=== PATIENT | female | born 1950 | race Hispanic/Latino ===

== ENCOUNTER 2019-08-03 07:03 | Observation (INO) | payer MEDICARE ==
[2019-08-03] MEDS ORDERED: ALBUTEROL 2.5 MG/3 ML NEBU IH ONE (07:09)
[2019-08-03] MEDS ORDERED: MAGNESIUM SULFATE 2 GM/50 ML BAG IV ONE (07:09)
[2019-08-03] MEDS ORDERED: IPRATROPIUM 0.02% NEBU 2.5 ML IH ONE (07:09)
[2019-08-03] MEDS ORDERED: ONDANSETRON 4 MG/2 ML INJ IV ONE (07:23)
[2019-08-03] MEDS ORDERED: ONDANSETRON 4 MG/2 ML INJ ONE (07:23)
--- NOTE | 2019-08-03 07:32 | Emergency Department Report ---
ED Shortness of Breath HPI - General Stated Complaint: DERRICK Time Seen by Provider: 08/03/19 07:09 Source: patient, EMS Mode of arrival: Ambulatory Limitations: Other (Severe work of breathing) - History of Present Illness Initial Comments: Chief complaint: " I cannot breathe." HPI: This is a 68-year-old female with history of COPD and tobacco use who presents with severe shortness of breath this morning. EMS arrived. Oxygen saturation 78% on room air according to EMS arrival. She received IV Solu- Medrol and CPAP. Patient denies fever denies chest pain. Mild nonproductive cough Complaint: shortness of breath -: Gradual, This morning Severity: severe Consistency: constant Improves With: nothing Worsens With: nothing Known History Of: COPD Associated Symptoms: cough ED Review of Systems ROS: Stated complaint: DERRICK Other details as noted in HPI Comment: All other systems reviewed and negative Constitutional: denies: fever, malaise Respiratory: cough, shortness of breath Cardiovascular: denies: chest pain Gastrointestinal: nausea. denies: abdominal pain ED Past Medical Hx - Past Medical History Previous Medical History?: Yes Additional medical history: COPD - Social History Smoking Status: Current Every Day Smoker ED Physical Exam - General General appearance: alert, in distress, other (Speaking 1-2 word sentences anxious severe work of breathing tripod position) - Head Head exam: Present: atraumatic, normocephalic - Eye Eye exam: Present: normal appearance - ENT ENT exam: Present: mucous membranes moist - Neck Neck exam: Present: normal inspection, full ROM - Respiratory Respiratory exam: Present: respiratory distress, accessory muscle use, decreased breath sounds, prolonged expiratory. Absent: rales, rhonchi - Cardiovascular Cardiovascular Exam: Present: regular rate, normal rhythm, normal heart sounds. Absent: systolic murmur, diastolic murmur, rubs, gallop - GI/Abdominal GI/Abdominal exam: Present: soft, normal bowel sounds. Absent: distended, tenderness, guarding, rebound - Extremities Exam Extremities exam: Present: normal inspection - Back Exam Back exam: Present: normal inspection - Neurological Exam Neurological exam: Present: alert, oriented X3 - Psychiatric Psychiatric exam: Present: normal affect, anxious - Skin Skin exam: Present: warm, dry, intact, pallor. Absent: rash ED Course Vital Signs 08/03/19 08/03/19 08/03/19 07:10 07:15 07:30 Temperature 97.5 F L Pulse Rate 103 H 95 H Pulse Rate [ Bilateral] Respiratory 35 H 29 H Rate Respiratory Rate [Bilateral ] Blood Pressure 138/78 138/78 O2 Sat by Pulse 93 96 97 Oximetry 08/03/19 08/03/19 08/03/19 07:46 08:00 08:16 Temperature Pulse Rate 89 87 92 H Pulse Rate [ Bilateral] Respiratory 19 18 18 Rate Respiratory Rate [Bilateral ] Blood Pressure 122/69 119/63 118/53 O2 Sat by Pulse 98 91 97 Oximetry 08/03/19 08/03/19 08/03/19 08:23 08:30 08:45 Temperature Pulse Rate 95 H 85 Pulse Rate [ 91 H Bilateral] Respiratory 16 15 Rate Respiratory 17 Rate [Bilateral ] Blood Pressure 118/53 107/55 O2 Sat by Pulse 98 98 Oximetry 08/03/19 08:46 Temperature Pulse Rate 86 Pulse Rate [ Bilateral] Respiratory 17 Rate Respiratory Rate [Bilateral ] Blood Pressure 107/55 O2 Sat by Pulse 98 Oximetry ED Medical Decision Making - Lab Data Result diagrams: 08/03/19 07:35 08/03/19 07:35 - EKG Data 08/03/19 07:31 EKG obtained 0729 Normal sinus rhythm rate 90 bpm abnormal axis prolonged NJ interval normal QTC no ST elevation nonischemic T wave pattern - Radiology Data Radiology results: report reviewed AP portable chest radiograph: No acute findings according to radiology report - Medical Decision Making Acute respiratory failure hypoxia hypercapnia requiring noninvasive positive pressure ventilation. Acute COPD exacerbation. Treated with IV magnesium, IV Solu-Medrol in route. Patient required CPAP in route. Treated with antibiotics and bronchodilator therapy. ABG with reflects respiratory acidosis. Admitted to the hospital service in improved condition Critical Care Time: Yes Critical care time in (mins) excluding proc time.: 40 Critical care attestation.: If time is entered above; I have spent that time in minutes in the direct care of this critically ill patient, excluding procedure time. 40 minutes of critical care time excluding procedures were used in the care of the patient. I reviewed electronic record. I discussed treatment plan with the nursing team members at the bedside. I came immediately to the bedside upon patient arrival. I obtained history from EMS. I have asked for stat respiratory therapy including noninvasive positive pressure ventilation bronchodilator treatment. patient required multiple interventions and reassessments. ED Disposition Clinical Impression: Acute respiratory failure with hypoxia and hypercapnia, COPD with acute exacerbation Disposition: DC-09 OP ADMIT IP TO THIS HOSP Is pt being admited?: Yes Does the pt Need Aspirin: No Condition: Stable
--- NOTE | 2019-08-03 07:39 | XRay Report ---
CHEST 1 VIEW INDICATION: Dyspnea. COMPARISON: None FINDINGS: Support devices: None. Heart: Within normal limits. Lungs/Pleura: No acute air space or interstitial disease. Additional findings: None. IMPRESSION: 1. No acute findings. Signer Name: Manjinder Raphael MD Signed: 08/03/2019 7:34 AM Workstation Name: [id number]
[2019-08-03 07:50] LABS: Basophils # (Auto) 0.1 K/mm3 (0.0-0.1); Basophils % (Auto) 0.7 % (0.0-1.8); Eosinophils # (Auto) 0.3 K/mm3 (0.0-0.4); Eosinophils % (Auto) 3.2 % (0.0-4.3); Hematocrit 45.1 % (30.3-42.9); Hemoglobin 15.4 gm/dl (10.1-14.3); Lymphocytes # (Auto) 3.5 K/mm3 (1.2-5.4); Lymphocytes % (Auto) 41.4 % (13.4-35.0); Mean Corpuscular HGB Conc 34 % (30-34); Mean Corpuscular Volume 92 fl (79-97); Monocytes # (Auto) 0.4 K/mm3 (0.0-0.8); Monocytes % (Auto) 4.7 % (0.0-7.3); Platelet Count 181 K/mm3 (140-440); Red Cell Distribution Width 14.2 % (13.2-15.2)
[2019-08-03 08:13] LABS: Alanine Aminotransferase 19 units/L (7-56); Albumin 4.5 g/dL (3.9-5); BUN/Creatinine Ratio 23; Blood Urea Nitrogen 16 mg/dL (7-17); Calcium 9.4 mg/dL (8.4-10.2); Hemolysis Index 6
[2019-08-03 08:42] LABS: ABG Base Excess -2.3 mmol/L (-2.0-3.0); ABG HCO3 24.6 mmol/L (20.0-26.0); ABG Methemoglobin 0.6 % (0.0-1.5); ABG Oxygen Saturation 99.4 % (95.0-99.0); ABG PCO2 50.1 mm Hg; ABG PH 7.309 pH Units (7.350-7.450); ABG PO2 249.1 mm Hg (80.0-90.0)
--- NOTE | 2019-08-03 10:27 | History and Physical Report ---
History of Present Illness Date of examination: 08/03/19 Date of admission: 08/03/19 09:07 Chief complaint: SOB History of present illness: This is a 68-year-old female with history of COPD and tobacco use who presents with sudden onset of severe shortness of breath this morning. EMS was called and her Oxygen saturation noted 78% on room air. She received IV Solu-Medrol and CPAP and brought to the ER for further evaluation and management . Patient denies fever denies chest pain. Does endorse mild nonproductive cough. Denied any exposure to COVID-19 patients, any recent travel to [place] or [place]. Chest x-ray showed no infiltrates, vitals shows normal temperature. Patient is being admitted for COPD exacerbation. Review of System: Constitutional: no fever, no chills, no weight loss Ears, eyes, nose, mouth and throat: no nasal congestion, no nasal discharge, no sinus pressure, no vision change, no red eye. Neck: No neck pain or rigidity. Cardiovascular: No chest pain, no orthopnea, no palpitations, no leg swelling Respiratory: + shortness of breath, + cough, no congestion, no wheezing Gastrointestinal: no abdominal pain, no nausea, no vomiting Genitourinary : no dysuria, no hematuria Musculoskeletal: no joint swelling or muscle ache Integumentary: no rash, no pruritis Neurological: no parathesias, no numbness, no tingling Endocrine: no cold or heat intolerance, no polyuria or polydipsia Hematologic/Lymphatic: no easy bruising, no easy bleeding, no gland swelling Allergic/Immunologic: no urticaria, no angioedema. Past History Past Medical History: COPD, other (sesional allergy) Past Surgical History: No surgical history Social history: denies: smoking, alcohol abuse Family history: no significant family history Medications and Allergies Allergies Allergy/AdvReac Type Severity Reaction Status Date / Time No Known Allergies Allergy Verified 08/03/19 09:22 Home Medications Medication Instructions Recorded Confirmed Last Taken Type Albuterol INH(or & Nicu Only) 8.5 g IH 4XD PRN #1 vial 08/04/19 Unknown Rx [ProAir HFA Inhaler] Azithromycin [Zithromax TAB] 500 mg PO QDAY #3 tablet 08/04/19 Unknown Rx Ipratropium/Albuterol Sulfate 1 ampul IH Q6HRT #30 ampul.neb 08/04/19 Unknown Rx [DUONEB *Not for PRN Use*] Prednisone [predniSONE 10 mg 10 mg PO .TAPER #1 tab.ds.pk 08/04/19 Unknown Rx (6-Day Pack, 21 Tabs)] Umeclidinium Brm/Vilanterol Tr 1 each IH DAILY #1 vial 08/04/19 Unknown Rx [Anoro Ellipta 62.5-25 Mcg INH] Exam - Physical Exam Narrative exam: GENERAL: well-developed and well-nourished elderly white female lying on bed appeared to be in no discomfort. HEENT: Normocephalic. Atraumatic. No conjunctival congestion or icterus. Patient has moist mucous membranes. NECK: Supple. Trachea midline. CHEST/LUNGS: Positive few wheezes auscultated bilaterally, breathing nonlabored. No crackles or rhonchi. HEART/CARDIOVASCULAR: Regular in rate and rhythm. S1 and S2 positive. ABDOMEN: Abdomen is soft, nontender. Patient has normal bowel sounds. SKIN: There is no rash. Warm and dry. NEURO: No focal motor deficit. Follows command. MUSCULOSKELETAL: No joint effusion or tenderness. EXTRIMITY: No edema, no cyanosis or clubbing. PSYCH: Cooperative. - Constitutional Vitals: Temp Pulse Resp BP Pulse Ox 97.8 F 93 H 18 108/55 94 08/03/19 10:00 08/03/19 10:00 08/03/19 10:00 08/03/19 10:00 08/03/19 10:00 Results - Labs CBC & Chem 7: 08/03/19 07:35 08/03/19 07:35 Labs: Abnormal lab results 08/03/19 08/03/19 08/03/19 Range/Units 07:35 07:35 08:35 Hgb 15.4 H (10.1-14.3) gm/dl Hct 45.1 H (30.3-42.9) % Lymph % (Auto) 41.4 H (13.4-35.0) % ABG pH 7.309 L (7.350-7.450) pH Units ABG pO2 249.1 H (80.0-90.0) mm Hg ABG O2 Saturation 99.4 H (95.0-99.0) % ABG Base Excess -2.3 L (-2.0-3.0) mmol/L Glucose 148 H (65-100) mg/dL - Imaging and Cardiology Chest x-ray: report reviewed (No infiltrates) Assessment and Plan Acute hypoxic respiratory failure Acute COPD exacerbation -- We'll admit the patient to telemetry - Will provide scheduled nebulizer breathing treatment and as needed - Place on empiric steroid and antibiotic - will get sputum culture, chest x-ray was unremarkable - Provide supplemental oxygen to keep oxygen saturation above 92% - Consider to consult pulmonary if no improvement in next 24 hours - We'll place on sliding scale of insulin as patient will be on empiric steroid - We will resume home medications, monitor BP History of seasonal allergy, will start on Claritin - Provide DVT prophylaxis with Lovenox.
[2019-08-03] MEDS: ACETAMINOPHEN 325 MG TAB PO PRN (13:58)
[2019-08-03] MEDS: methylPREDNISolone Sod Succinate 40 MG/1 ML INJ IV SCH ×2 (14:59→21:19)
[2019-08-03] MEDS: LORATADINE/PSEUDOEPHEDRINE 10-240 MG TAB 24HR PO SCH (14:59)
[2019-08-03] MEDS: IPRATROPIUM/ALBUTEROL SULFATE 3 ML AMPUL.NEB IH SCH ×2 (15:52→19:28)
[2019-08-03] MEDS: BUDESONIDE 0.5 MG/2 ML NEBU IH SCH (19:28)
[2019-08-03] MEDS ORDERED: ENOXAPARIN 40 MG/0.4 ML INJ SUB-Q SCH (22:00)
[2019-08-04] MEDS: IPRATROPIUM/ALBUTEROL SULFATE 3 ML AMPUL.NEB IH SCH ×4 (01:50→16:49)
[2019-08-04] MEDS: methylPREDNISolone Sod Succinate 40 MG/1 ML INJ IV SCH ×2 (05:36→13:37)
[2019-08-04] MEDS: BUDESONIDE 0.5 MG/2 ML NEBU IH SCH (09:24)
[2019-08-04] MEDS: LORATADINE/PSEUDOEPHEDRINE 10-240 MG TAB 24HR PO SCH ×2 (09:39→11:27)
[2019-08-04] MEDS: ACETAMINOPHEN 325 MG TAB PO PRN (11:10)
--- NOTE | 2019-08-04 14:01 | Discharge Summary ---
Providers - Providers Date of Admission: 08/03/19 09:07 Date of discharge: 08/04/19 Attending physician: JAMESON HINES Primary care physician: VALERI TERRAZAS MD Hospitalization Condition: Stable Hospital course: This is a 68-year-old female with history of COPD and tobacco use who presents with sudden onset of severe shortness of breath this morning. EMS was called an d her Oxygen saturation noted 78% on room air. She received IV Solu-Medrol and CPAP and brought to the ER for further evaluation and management . Chest x-ray showed no infiltrates, vitals shows normal temperature. Patient was admitted for COPD exacerbation. Patient was admitted to medical floor with scheduled nebs, iv abx, iv steroids and supplemental O2 to keep O2 sat at 94%. Patients symptom improved with medical management. Patient was then discharged home in stable condition with outpt f/u. Discharge diagnosis: Acute hypoxic respiratory failure, improved Acute COPD exacerbation Seasonal allergy Disposition: - TO HOME OR SELFCARE Time spent for discharge: 34 minutes Core Measure Documentation - Palliative Care Palliative Care/ Comfort Measures: Not Applicable - Core Measures Any of the following diagnoses?: none Exam - Physical Exam Narrative exam: GENERAL: well-developed and well-nourished elderly white female lying on bed appeared to be in no discomfort. HEENT: Normocephalic. Atraumatic. No conjunctival congestion or icterus. Patient has moist mucous membranes. NECK: Supple. Trachea midline. CHEST/LUNGS: no wheezes auscultated bilaterally, breathing nonlabored. No crackles or rhonchi. HEART/CARDIOVASCULAR: Regular in rate and rhythm. S1 and S2 positive. ABDOMEN: Abdomen is soft, nontender. Patient has normal bowel sounds. SKIN: There is no rash. Warm and dry. NEURO: No focal motor deficit. Follows command. MUSCULOSKELETAL: No joint effusion or tenderness. EXTRIMITY: No edema, no cyanosis or clubbing. PSYCH: Cooperative. - Constitutional Vitals: Temp Pulse Resp BP Pulse Ox 98.1 F 77 20 111/60 98 08/04/19 12:17 08/04/19 12:17 08/04/19 12:17 08/04/19 12:17 08/04/19 12:17 Plan Activity: advance as tolerated Weight Bearing Status: Weight Bear as Tolerated Diet: low fat Follow up with: PRIMARY CAREMD [Primary Care Provider] - 3-5 Days Prescriptions: Umeclidinium Brm/Vilanterol Tr [Anoro Ellipta 62.5-25 Mcg INH] 1 each IH DAILY #1 vial Ipratropium/Albuterol Sulfate [DUONEB *Not for PRN Use*] 1 ampul IH Q6HRT #30 ampul.neb Prednisone [predniSONE 10 mg (6-Day Pack, 21 Tabs)] 10 mg PO .TAPER #1 tab.ds.pk Albuterol INH(or & Nicu Only) [ProAir HFA Inhaler] 8.5 g IH 4XD PRN #1 vial PRN Reason: Wheezing Azithromycin [Zithromax TAB] 500 mg PO QDAY #3 tablet
[2019-08-04 15:54] VITALS: BP 109/53
[2019-08-05] MEDS ORDERED: levoFLOXacin 750 MG TAB PO SCH (10:00)
== END 2019-08-04 16:05 | disposition home or self-care (01) ==
LOC: ED 07:03 → 4A 09:07 → INTOOBSV 09:07
PROVIDERS: ADMIT Internal Medicine; ATTEND Internal Medicine
DX: J96.01 Acute respiratory failure with hypoxia (principal); J44.1 Chronic obstructive pulmonary disease with (acute) exacerbation; J96.02 Acute respiratory failure with hypercapnia; J30.2 Other seasonal allergic rhinitis; F17.200 Nicotine dependence, unspecified, uncomplicated; Z79.51 Long term (current) use of inhaled steroids; Z79.52 Long term (current) use of systemic steroids; Z79.899 Other long term (current) drug therapy; Z71.6 Tobacco abuse counseling
CPT/HCPCS: 36415; 71045; 80053; 82803; 85025; 87040; 93005; 94640; 94644; 94760; 96365; 96366; 96367; 96375; 96376; 99291; 99406; G0378; J1956; J2405; J2920; J3475; J1650